=== PATIENT | female | born 1970 | race Asian ===

== ENCOUNTER 2023-04-01 15:29 | Emergency (ER) | payer OTHER ==
[~2023-04-01] VITALS: Ht 157.5 cm; Wt 81.6 kg
[2023-04-01 15:36] VITALS: BP 138/61; TEMP 98.4
[2023-04-01 16:08] LABS: PLATELET COUNT 381 K/uL (152-353)
[2023-04-01 16:17] LABS: POTASSIUM 3.9 mmol/L (3.6-5.2)
== END 2023-04-01 18:53 | disposition home or self-care (01) ==
LOC: ED 15:29
PROVIDERS: Family Medicine
DX: N39.0 Urinary tract infection, site not specified (principal); K59.00 Constipation, unspecified; R10.30 Lower abdominal pain, unspecified
CPT/HCPCS: 80053; 81000; 83690; 84484; 85027; 87077; 87086; 87088; 87186; 93005; 99283